=== PATIENT | female | born 1975 | race Caucasian/White ===

== ENCOUNTER 2017-10-22 14:46 | Emergency (ER) | payer OTHER ==
[~2017-10-22] VITALS: Ht 167.6 cm; Wt 95.2 kg
[~2017-10-22 14:46] MED LIST: ACYC400 PO; ALBU90OI6 INH; ALBU90OI61 INH; ARIP10 PO; BENZ100A PO; BUSP15 PO; Benadryl 50 mg50 MG PO; CALCAVITDA PO; CEPH500 PO; CLOM50A; CLON.5; CLON2 PO; CYCL10 PO; DOXY100T53 PO; ERGO400 PO; FAMO20 PO; FLUV50; HYDACE5 PO; HYDPAM25 PO; LAMO5; MEDR150I IM; NAPR500 PO; Prednisone20 MG PO; QUET200; QUET200 PO; QUET25; RXERYTOPTH OP; SERT100 PO; SULTRIDS PO; TRAM50 PO; TRIHYD5075 PO; Zofran Odt4 MG SL; Zofran4 MG PO; [UNRECOGNIZED DRUG - REMARK]
[2018-09-16] MEDS ORDERED: Abilify5 MG PO (12:11)
== END 2017-10-22 16:55 | disposition home or self-care (01) ==
LOC: ER 14:46
DX: J02.9 Acute pharyngitis, unspecified (principal); F32.9 Major depressive disorder, single episode, unspecified; J45.909 Unspecified asthma, uncomplicated; F41.9 Anxiety disorder, unspecified; F43.10 Post-traumatic stress disorder, unspecified; F17.200 Nicotine dependence, unspecified, uncomplicated; Z79.899 Other long term (current) drug therapy
CPT/HCPCS: 87081; 87430; 99283

== ENCOUNTER → 2017-11-12 | Outpatient (CLI) | payer OTHER ==
[~2017-11-12] MED LIST changes: +Abilify5 MG PO; +ONDA4ODT MM; +Sudogest60 MG PO; +Verotin-Gr Cap1 EACH PO; +Zovirax400 MG PO
[2017-11-13 14:26] LABS: BASOPHILS ABSOLUTE AUTO 0.06 K/mm3 (0.00-0.23); BASOPHILS PERCENT AUTO 1 % (0-2); EOSINOPHILS ABSOLUTE AUTO 0.17 K/mm3 (0.00-0.68); EOSINOPHILS PERCENT AUTO 1 % (0-6); Hematocrit 41.3 % (33.0-51.0); Hemoglobin 13.7 g/dL (11.5-16.0); IMMATURE GRAN ABSOLUTE AUTO 0.06 K/mm3 (0.00-0.10); IMMATURE GRAN PERCENT AUTO 1 % (0-1); LYMPHOCYTES ABSOLUTE AUTO 3.27 K/mm3 (0.84-5.20); LYMPHOCYTES PERCENT AUTO 27 % (21-46); MONOCYTES ABSOLUTE AUTO 0.79 K/mm3 (0.16-1.47); MONOCYTES PERCENT AUTO 7 % (4-13); Mean Corpuscular HGB 30.8 pg (26.0-34.0); Mean Corpuscular HGB Conc 33.2 g/dL (31.5-36.5); Mean Corpuscular Volume 93 fL (80-100); Mean Platelet Volume 11.3 fL (9.1-12.4); NEUTROPHILS ABSOLUTE AUTO 7.85 K/mm3 (1.96-9.15); NEUTROPHILS PERCENT AUTO 64 % (41-73); Platelet Count 334 K/mm3 (150-400); RDW Coefficient Variation 11.8 % (11.7-14.2); RDW Standard Deviation 40.5 fL (35.1-46.3); Red Blood Cell Count 4.45 M/mm3 (3.80-5.20)
[2017-11-13 14:46] LABS: Alanine Aminotransfer (ALT/SGP 24 U/L (12-78); Albumin, Blood 3.8 g/dL (3.4-5.0); Alk Phos 78 U/L (50-136); Anion Gap 8 mmol/L (6-16); Aspartate Aminotrans (AST/SGOT 16 U/L (12-37); Bilirubin, Total 0.3 mg/dL (0.1-1.0); Blood Urea Nitrogen 9 mg/dL (8-24); Bun/Creatinine Ratio 14.2 (12.0-20.0); CHOL/HDL RATIO 3.6; CO2, Blood 24 mmol/L (21-32); Calcium, Blood 8.9 mg/dL (8.5-10.1); Chloride, Blood 108 mmol/L (98-108); Cholesterol 190 mg/dL (50-200); Creatinine, Blood 0.63 mg/dL (0.40-1.00); Globulin, Blood 3.7 g/dL (2.2-4.0); Glomerular Filtration Rate >60 (60-); Glucose, Blood 85 mg/dL (70-99); HDL Cholesterol 53 mg/dL (>39); Low Density Lipoprotein Chol 106 mg/dL (0-110); Potassium, Blood 4.5 mmol/L (3.5-5.5); Sodium, Blood 140 mmol/L (136-145); Total Protein, Blood 7.5 g/dL (6.4-8.2); Triglycerides 156 mg/dL (30-160); Very Low Density Lipoprot Chol 31 mg/dL (6-32)
== END | disposition home or self-care (01) ==
LOC: LAB 16:50 → LAB SHORT 16:50
PROVIDERS: Nurse Practitioner Family
DX: E78.5 Hyperlipidemia, unspecified (principal); E55.9 Vitamin D deficiency, unspecified
CPT/HCPCS: 80053; 80061; 82306; 85025

== ENCOUNTER 2017-11-19 20:21 | Emergency (ER) | payer OTHER ==
[~2017-11-19] VITALS: Ht 170.2 cm; Wt 81.7 kg
[~2017-11-19 20:21] MED LIST changes: -Abilify5 MG PO; -ONDA4ODT MM; -Sudogest60 MG PO; -Verotin-Gr Cap1 EACH PO; -Zovirax400 MG PO
[2017-11-19 20:58] LABS: BASOPHILS ABSOLUTE AUTO 0.05 K/mm3 (0.00-0.23); BASOPHILS PERCENT AUTO 0 % (0-2); EOSINOPHILS ABSOLUTE AUTO 0.24 K/mm3 (0.00-0.68); EOSINOPHILS PERCENT AUTO 2 % (0-6); Hematocrit 39.7 % (33.0-51.0); Hemoglobin 13.5 g/dL (11.5-16.0); IMMATURE GRAN ABSOLUTE AUTO 0.02 K/mm3 (0.00-0.10); IMMATURE GRAN PERCENT AUTO 0 % (0-1); LYMPHOCYTES ABSOLUTE AUTO 3.65 K/mm3 (0.84-5.20); LYMPHOCYTES PERCENT AUTO 29 % (21-46); MONOCYTES ABSOLUTE AUTO 0.89 K/mm3 (0.16-1.47); MONOCYTES PERCENT AUTO 7 % (4-13); Mean Corpuscular HGB 31.5 pg (26.0-34.0); Mean Corpuscular Volume 93 fL (80-100); Mean Platelet Volume 10.5 fL (9.1-12.4); NEUTROPHILS ABSOLUTE AUTO 7.86 K/mm3 (1.96-9.15); NEUTROPHILS PERCENT AUTO 62 % (41-73); Platelet Count 285 K/mm3 (150-400); RDW Coefficient Variation 11.9 % (11.7-14.2); RDW Standard Deviation 40.9 fL (35.1-46.3); Red Blood Cell Count 4.28 M/mm3 (3.80-5.20); White Blood Cell Count 12.71 K/mm3 (4.00-11.30)
[2017-11-19 21:09] LABS: Alanine Aminotransfer (ALT/SGP 23 U/L (12-78); Albumin, Blood 3.4 g/dL (3.4-5.0); Albumin/Globulin Ratio 0.9 (0.8-1.8); Alk Phos 75 U/L (50-136); Anion Gap 9 mmol/L (6-16); Aspartate Aminotrans (AST/SGOT 24 U/L (12-37); Bilirubin, Total 0.2 mg/dL (0.1-1.0); Blood Urea Nitrogen 13 mg/dL (8-24); Bun/Creatinine Ratio 19.4 (12.0-20.0); CO2, Blood 23 mmol/L (21-32); Calcium, Blood 8.4 mg/dL (8.5-10.1); Chloride, Blood 107 mmol/L (98-108); Creatinine, Blood 0.67 mg/dL (0.40-1.00); Globulin, Blood 3.6 g/dL (2.2-4.0); Glomerular Filtration Rate >60 (60-); Glucose, Blood 94 mg/dL (70-99); Potassium, Blood 4.2 mmol/L (3.5-5.5); Sodium, Blood 139 mmol/L (136-145); Troponin I <0.015 ng/mL (0.000-0.040)
[2018-09-16] MEDS ORDERED: Abilify5 MG PO (12:11)
== END 2017-11-19 23:45 | disposition home or self-care (01) ==
LOC: ER 20:21
PROVIDERS: Emergency Medicine
DX: J45.901 Unspecified asthma with (acute) exacerbation (principal); F32.9 Major depressive disorder, single episode, unspecified; F41.9 Anxiety disorder, unspecified; F17.210 Nicotine dependence, cigarettes, uncomplicated; Z79.899 Other long term (current) drug therapy
CPT/HCPCS: 36415; 71046; 80053; 84484; 85025; 93005; 93010; 94640; 96361; 96374; 99283; J1885; J7030

== ENCOUNTER 2017-12-20 14:36 | Emergency (ER) | payer OTHER ==
[~2017-12-20] VITALS: Ht 167.6 cm; Wt 77.1 kg
[2017-12-20] MEDS ORDERED: SERT100 PO (14:57)
[2017-12-20] MEDS ORDERED: Zovirax400 MG PO (15:33)
[2018-09-16] MEDS ORDERED: Abilify5 MG PO (12:11)
== END 2017-12-20 15:37 | disposition home or self-care (01) ==
LOC: ER 14:36
DX: Z76.0 Encounter for issue of repeat prescription (principal); L60.0 Ingrowing nail; F32.9 Major depressive disorder, single episode, unspecified; F41.9 Anxiety disorder, unspecified; J45.909 Unspecified asthma, uncomplicated; F17.210 Nicotine dependence, cigarettes, uncomplicated; Z79.899 Other long term (current) drug therapy
CPT/HCPCS: 99282

== ENCOUNTER 2018-01-01 09:54 | Emergency (ER) | payer OTHER ==
[~2018-01-01] VITALS: Ht 167.6 cm; Wt 61.2 kg
[~2018-01-01 09:54] MED LIST changes: +Zovirax400 MG PO
[2018-01-01] MEDS ORDERED: Sudogest60 MG PO (11:37)
[2018-01-01] MEDS ORDERED: BENZ100A PO (11:37)
[2018-09-16] MEDS ORDERED: Abilify5 MG PO (12:11)
== END 2018-01-01 11:43 | disposition home or self-care (01) ==
LOC: ER 09:54
DX: R05 Cough (principal); Z79.899 Other long term (current) drug therapy; F32.9 Major depressive disorder, single episode, unspecified; J45.909 Unspecified asthma, uncomplicated; F41.9 Anxiety disorder, unspecified; F43.10 Post-traumatic stress disorder, unspecified; F17.210 Nicotine dependence, cigarettes, uncomplicated
CPT/HCPCS: 87081; 87430; 99283

== ENCOUNTER 2018-04-20 07:59 | Emergency (ER) | payer OTHER ==
[~2018-04-20] VITALS: Ht 167.6 cm; Wt 68.0 kg
[~2018-04-20 07:59] MED LIST changes: +Sudogest60 MG PO
== END 2018-04-20 08:55 | disposition home or self-care (01) ==
LOC: ER 07:59
DX: Z32.01 Encounter for pregnancy test, result positive (principal); O99.341 Other mental disorders complicating pregnancy, first trimester; F32.9 Major depressive disorder, single episode, unspecified; F41.9 Anxiety disorder, unspecified; F17.210 Nicotine dependence, cigarettes, uncomplicated; Z79.899 Other long term (current) drug therapy
CPT/HCPCS: 81000; 81025; 99281

== ENCOUNTER 2018-05-24 18:38 | Emergency (ER) | payer OTHER ==
[~2018-05-24] VITALS: Ht 167.6 cm; Wt 90.7 kg
[2018-05-24] MEDS ORDERED: CEPH500 PO (19:14)
== END 2018-05-24 19:40 | disposition home or self-care (01) ==
LOC: ER 18:38
DX: O91.211 Nonpurulent mastitis associated with pregnancy, first trimester (principal); O99.331 Smoking (tobacco) complicating pregnancy, first trimester; F17.210 Nicotine dependence, cigarettes, uncomplicated; O99.511 Diseases of the respiratory system complicating pregnancy, first trimester; J45.909 Unspecified asthma, uncomplicated; O99.341 Other mental disorders complicating pregnancy, first trimester; F32.9 Major depressive disorder, single episode, unspecified; F41.9 Anxiety disorder, unspecified; F43.10 Post-traumatic stress disorder, unspecified; Z3A.10 10 weeks gestation of pregnancy
CPT/HCPCS: 99282

== ENCOUNTER → 2018-06-03 | Outpatient (CLI) | payer OTHER ==
[2018-06-05 15:08] LABS: HPV 16 Negative (Negative); HPV 18 Negative (Negative); HPV OTHER HR TYPES Negative (Negative)
== END ==
LOC: LAB 17:11 → LAB SHORT 17:11
PROVIDERS: Registered Nurse Community Health
DX: O09.529 Supervision of elderly multigravida, unspecified trimester (principal); Z11.3 Encounter for screening for infections with a predominantly sexual mode of transmission; Z12.4 Encounter for screening for malignant neoplasm of cervix
CPT/HCPCS: 87529; 87624; G0123

== ENCOUNTER → 2018-07-03 | Outpatient (CLI) | payer OTHER ==
[2018-07-08 03:10] LABS: CHLAMYDIA TRACHOMATIS, NAA Negative (Negative); NEISSERIA GONORRHOEAE, NAA Negative (Negative)
== END ==
LOC: LAB UCHC 14:25 → LAB SHORT 14:25
PROVIDERS: Registered Nurse Community Health
DX: Z36.89 Encounter for other specified antenatal screening (principal); O09.529 Supervision of elderly multigravida, unspecified trimester
CPT/HCPCS: 87491; 87591

== ENCOUNTER 2018-08-15 23:17 | Emergency (ER) | payer OTHER ==
[~2018-08-15] VITALS: Ht 167.6 cm; Wt 77.1 kg
[2018-08-15 23:56] LABS: Source, Urine Clean Catch
[2018-08-16 00:04] LABS: Bilirubin, Urine Neg (Neg); Blood, Urine 1+ (Neg); Glucose Qualitative, Urine Neg (Neg); Ketones, Urine Neg (Neg); Leukocyte Esterase, Urine 1+ (Neg); Nitrite, Urine Neg (Neg); Protein, Urine Neg (Neg); Urobilinogen, Urine NORM (Normal); pH, Urine 6.5 (5.0-8.0)
[2018-08-16] MEDS ORDERED: SERT100 PO (00:04)
[2018-08-16] MEDS ORDERED: Verotin-Gr Cap1 EACH PO (00:04)
[2018-08-16] MEDS ORDERED: ONDA4ODT MM (00:04)
[2018-08-16 00:31] LABS: Appearance, Urine Clear (Clear); Color, Urine Yellow (P-Yellow)
[2018-08-16 00:33] LABS: Bacteria Few /hpf; Red Blood Cells, Urine 0-2 /hpf (0-2); Squamous Epithelial Cells Many /hpf (Few)
[2018-08-16 01:53] LABS: BASOPHILS ABSOLUTE AUTO 0.03 K/mm3 (0.00-0.23); BASOPHILS PERCENT AUTO 0 % (0-2); EOSINOPHILS ABSOLUTE AUTO 0.11 K/mm3 (0.00-0.68); EOSINOPHILS PERCENT AUTO 1 % (0-6); Hematocrit 38.4 % (33.0-51.0); Hemoglobin 13.2 g/dL (11.5-16.0); IMMATURE GRAN ABSOLUTE AUTO 0.02 K/mm3 (0.00-0.10); IMMATURE GRAN PERCENT AUTO 0 % (0-1); LYMPHOCYTES ABSOLUTE AUTO 2.55 K/mm3 (0.84-5.20); LYMPHOCYTES PERCENT AUTO 26 % (21-46); MONOCYTES ABSOLUTE AUTO 0.83 K/mm3 (0.16-1.47); MONOCYTES PERCENT AUTO 9 % (4-13); Mean Corpuscular HGB 31.5 pg (26.0-34.0); Mean Corpuscular HGB Conc 34.4 g/dL (31.5-36.5); Mean Corpuscular Volume 92 fL (80-100); Mean Platelet Volume 11.1 fL (9.1-12.4); NEUTROPHILS ABSOLUTE AUTO 6.14 K/mm3 (1.96-9.15); NEUTROPHILS PERCENT AUTO 64 % (41-73); Platelet Count 277 K/mm3 (150-400); RDW Coefficient Variation 11.5 % (11.7-14.2); RDW Standard Deviation 38.9 fL (35.1-46.3); Red Blood Cell Count 4.19 M/mm3 (3.80-5.20); White Blood Cell Count 9.68 K/mm3 (4.00-11.30)
== END 2018-08-16 05:12 | disposition left against medical advice (07) ==
LOC: ER 23:17
PROVIDERS: Emergency Medicine
DX: O21.9 Vomiting of pregnancy, unspecified (principal); O99.342 Other mental disorders complicating pregnancy, second trimester; F31.9 Bipolar disorder, unspecified; F41.9 Anxiety disorder, unspecified; Z79.899 Other long term (current) drug therapy; Z3A.21 21 weeks gestation of pregnancy
CPT/HCPCS: 36415; 76816; 81001; 81025; 85025; 96374; 99284-25; J2550; J7030

== ENCOUNTER 2018-08-19 11:30 | Emergency (ER) | payer OTHER ==
[~2018-08-19] VITALS: Ht 167.6 cm; Wt 77.1 kg
[~2018-08-19 11:30] MED LIST changes: +ONDA4ODT MM; +Verotin-Gr Cap1 EACH PO
== END 2018-08-19 13:27 | disposition left against medical advice (07) ==
LOC: ER 11:30
DX: Z53.21 Procedure and treatment not carried out due to patient leaving prior to being seen by health care provider (principal)

== ENCOUNTER 2018-11-16 02:50 | Observation (INO) | payer OTHER ==
[~2018-11-16 02:50] MED LIST changes: +Abilify5 MG PO
--- NOTE | 2018-11-16 09:05 | NUR ---
REPORT TAKEN, ASSUMED CARE
--- NOTE | 2018-11-16 09:09 | NUR ---
PT REFUSED TO HAVE RN ADJUST MONITORS
[2018-11-16 09:18] LABS: Source, Urine Clean Catch
--- NOTE | 2018-11-16 09:36 | NUR ---
MFTI - NOT APPLICABLE AT DISCHARGE
--- NOTE | 2018-11-16 09:41 | NUR ---
NST PER GE EMR
[2018-11-16 09:44] LABS: Appearance, Urine Clear (Clear); Bilirubin, Urine Neg (Neg); Blood, Urine 1+ (Neg); Color, Urine Yellow (P-Yellow); Glucose Qualitative, Urine Neg (Neg); Ketones, Urine Neg (Neg); Leukocyte Esterase, Urine 1+ (Neg); Nitrite, Urine Neg (Neg); Protein, Urine Neg (Neg); Specific Gravity, Urine 1.005 (1.003-1.022); Urobilinogen, Urine NORM (Normal)
[2018-11-16 10:10] LABS: Bacteria Few /hpf; Red Blood Cells, Urine 0-2 /hpf (0-2); Squamous Epithelial Cells Mod /hpf (Few); White Blood Cells, Urine 0-2 /hpf (0-5)
[2018-11-16] MEDS ORDERED: PREPLUS CA-FE1 EACH PO (15:41)
[2018-11-16] MEDS ORDERED: BUSP10 PO (15:42)
[2018-11-16] MEDS ORDERED: ACYC400 PO (15:45)
[2018-11-17 06:32] LABS: U Amphetamine Screen Not Detected; U Barbituate Screen Not Detected; U Benzodiazapine Screen Not Detected; U Buprenorphine Screen Not Detected; U Cannabinoids Screen Not Detected; U Cocaine Screen Not Detected; U Methadone Screen Not Detected; U Methamphetamine Screen Not Detected; U Opiates Screen Not Detected; U Oxycodone Screen Not Detected; U Phencyclidine Screen Not Detected; U Propoxyphene Screen Not Detected
[2018-11-17] MEDS ORDERED: SERT50 PO (13:14)
[2018-11-17] MEDS ORDERED: IBUP800 PO (13:14)
[2018-11-17] MEDS ORDERED: ARIP10 PO (13:18)
== END 2018-11-16 09:28 | disposition home or self-care (01) ==
LOC: OBS 02:50 → BC 02:50 → OBS 08:30 → BC 08:31
PROVIDERS: ADMIT Registered Nurse Community Health
DX: O60.03 Preterm labor without delivery, third trimester (principal); O09.523 Supervision of elderly multigravida, third trimester; O99.343 Other mental disorders complicating pregnancy, third trimester; F31.9 Bipolar disorder, unspecified; Z88.8 Allergy status to other drugs, medicaments and biological substances; Z79.899 Other long term (current) drug therapy; Z3A.35 35 weeks gestation of pregnancy
CPT/HCPCS: 36415; 59025; 81001; 87086; 96372; G0378; J0290; J3105; J7120

== ENCOUNTER 2018-11-16 13:50 | Inpatient (IN) | payer OTHER ==
[~2018-11-16] VITALS: Ht 165.1 cm; Wt 78.4 kg
[2018-11-16 14:51] LABS: BASOPHILS ABSOLUTE AUTO 0.04 K/mm3 (0.00-0.23); BASOPHILS PERCENT AUTO 0 % (0-2); EOSINOPHILS PERCENT AUTO 0 % (0-6); Hematocrit 39.7 % (33.0-51.0); Hemoglobin 13.8 g/dL (11.5-16.0); IMMATURE GRAN ABSOLUTE AUTO 0.14 K/mm3 (0.00-0.10); IMMATURE GRAN PERCENT AUTO 1 % (0-1); LYMPHOCYTES ABSOLUTE AUTO 1.58 K/mm3 (0.84-5.20); LYMPHOCYTES PERCENT AUTO 8 % (21-46); MONOCYTES ABSOLUTE AUTO 0.88 K/mm3 (0.16-1.47); MONOCYTES PERCENT AUTO 4 % (4-13); Mean Corpuscular HGB 31.3 pg (26.0-34.0); Mean Corpuscular HGB Conc 34.8 g/dL (31.5-36.5); Mean Corpuscular Volume 90 fL (80-100); Mean Platelet Volume 10.4 fL (9.1-12.4); NEUTROPHILS ABSOLUTE AUTO 17.62 K/mm3 (1.96-9.15); NEUTROPHILS PERCENT AUTO 87 % (41-73); Platelet Count 327 K/mm3 (150-400); RDW Coefficient Variation 12.6 % (11.7-14.2); RDW Standard Deviation 41.2 fL (35.1-46.3); Red Blood Cell Count 4.41 M/mm3 (3.80-5.20); White Blood Cell Count 20.26 K/mm3 (4.00-11.30)
[2018-11-16] MEDS ORDERED: PREPLUS CA-FE1 EACH PO (15:41)
[2018-11-16] MEDS ORDERED: BUSP10 PO (15:42)
[2018-11-16] MEDS ORDERED: ACYC400 PO (15:45)
--- NOTE | 2018-11-16 23:08 | NUR ---
RECEIEVED REPORT FROM RIVAS ARTEAGA. ASSUMED PATIENT CARE AT THIS TIME.
[2018-11-17 05:26] LABS: BASOPHILS ABSOLUTE AUTO 0.04 K/mm3 (0.00-0.23); BASOPHILS PERCENT AUTO 0 % (0-2); EOSINOPHILS ABSOLUTE AUTO 0.08 K/mm3 (0.00-0.68); EOSINOPHILS PERCENT AUTO 1 % (0-6); Hematocrit 37.1 % (33.0-51.0); Hemoglobin 12.5 g/dL (11.5-16.0); IMMATURE GRAN ABSOLUTE AUTO 0.09 K/mm3 (0.00-0.10); IMMATURE GRAN PERCENT AUTO 1 % (0-1); LYMPHOCYTES ABSOLUTE AUTO 3.56 K/mm3 (0.84-5.20); LYMPHOCYTES PERCENT AUTO 24 % (21-46); MONOCYTES ABSOLUTE AUTO 1.32 K/mm3 (0.16-1.47); MONOCYTES PERCENT AUTO 9 % (4-13); Mean Corpuscular HGB 31.3 pg (26.0-34.0); Mean Corpuscular HGB Conc 33.7 g/dL (31.5-36.5); NEUTROPHILS ABSOLUTE AUTO 9.61 K/mm3 (1.96-9.15); NEUTROPHILS PERCENT AUTO 65 % (41-73); Platelet Count 256 K/mm3 (150-400); RDW Coefficient Variation 12.7 % (11.7-14.2); RDW Standard Deviation 43.5 fL (35.1-46.3)
[2018-11-17 05:27] LABS: Mean Corpuscular Volume 93 fL (80-100)
[2018-11-17] MEDS ORDERED: IBUP800 PO (13:14)
[2018-11-17] MEDS ORDERED: SERT50 PO (13:14)
[2018-11-17] MEDS ORDERED: ARIP10 PO (13:18)
--- NOTE | 2018-11-17 13:55 | NUR ---
CPS AT BEDSIDE
--- NOTE | 2018-11-17 15:25 | NUR ---
CPS BERNIE MILLER, OUT OF PT ROOM. STATES THAT BABY AVERY HARTLEY WILL BE REMOVED FROM [facility]ART[facility] CUSTODY. ALYSE AND HER ARE AWARE AND REMAINED CALM IN ROOM.
--- NOTE | 2018-11-17 15:50 | NUR ---
PT HAD LEFT TO [place] TO GET FOOD AFTER CPS LEFT. PT BACK TO ROOM, GATHERING UP BELONGINGS. PT MEDICATIONS GIVEN BACK TO HER FROM PHARMACY. DISCUSSING PPFU APPOINTMENT, PT STATES SHE IS INTERESTED, THEN ALL OF A SUDDEN GOT AGITATED AND STARTED WALKING OUT THE DOOR. PT ASKED TO STAY TO HEAR ABOUT DISCHARGE INFORMATION AND PPFU. PT STATES "NOPE" AND LEAVES THE ROOM. PT UPSET ABOUT NOT BEING ABLE TO STAY WITH . RN UN ABLE TO BOOK PPFU, UNABLE TO REVIEW POST DISCHARGE INSTRUCTIONS. IBUPROFEN CALLED INTO [facility].
--- NOTE | 2018-11-17 15:51 | NUR ---
PT LEFT FBP UNIT
--- NOTE | 2018-11-17 16:22 | NUR ---
DENIA PARADA CALLED AND UPDATED ON PT LEAVING BEFORE DISCHARGE EDUCATION DISCUSSED, BEFORE FILLING OUT CERTIFICATE, AND HAS NO PPFU APPOINTMENT MADE. UPDATED ON CPS TAKING INFANT INTO CUSTODY.
== END 2018-11-17 15:55 | disposition home or self-care (01) | DRG 807 ==
LOC: OBS 13:50 → BC 13:57
PROVIDERS: ADMIT Registered Nurse Community Health
PROC: 10E0XZZ Delivery of Products of Conception, External Approach (ICD-10-PCS; principal; 2018-11-16)
PROC: 0HQ9XZZ Repair Perineum Skin, External Approach (ICD-10-PCS; 2018-11-16)
DX: O70.0 First degree perineal laceration during delivery (principal); Z37.0 Single live birth; Z3A.35 35 weeks gestation of pregnancy
CPT/HCPCS: 36415; 85025; J0290; J2590; J7120

== ENCOUNTER 2019-11-02 13:17 | Emergency (ER) | payer OTHER ==
[~2019-11-02] VITALS: Ht 167.6 cm; Wt 95.2 kg
[~2019-11-02 13:17] MED LIST changes: +BUSP10 PO; +IBUP800 PO; +PREPLUS CA-FE1 EACH PO; +SERT50 PO
[2019-11-02 13:52] LABS: Influenza A Negative (NEGATIVE); Influenza B Negative (NEGATIVE)
[2019-11-02] MEDS ORDERED: Chlor-Trimeton4 MG PO (14:11)
[2019-11-02] MEDS ORDERED: GUAIFENESIN-CODE5 ML PO (14:11)
== END 2019-11-02 14:29 | disposition home or self-care (01) ==
LOC: ER 13:17
PROVIDERS: Physician Assistant
DX: J06.9 Acute upper respiratory infection, unspecified (principal); Z88.8 Allergy status to other drugs, medicaments and biological substances; Z79.899 Other long term (current) drug therapy; J45.909 Unspecified asthma, uncomplicated; F31.9 Bipolar disorder, unspecified; F17.210 Nicotine dependence, cigarettes, uncomplicated
CPT/HCPCS: 87081; 87430; 87804; 99283

== ENCOUNTER → 2023-08-26 | Outpatient (CLI) | payer OTHER ==
[~2023-08-26] MED LIST changes: +Chlor-Trimeton4 MG PO; +GUAIFENESIN-CODE5 ML PO
== END ==
LOC: LAB SHORT 09:05 → LAB 09:05
DX: N91.2 Amenorrhea, unspecified (principal)
CPT/HCPCS: 84703

== ENCOUNTER → 2023-09-11 | Outpatient (CLI) | payer OTHER ==
[2023-09-20 12:02] LABS: HPV GENOTYPE 16 Not Detected; HPV GENOTYPE 18 Not Detected; HPV HIGH RISK Not Detected; HPV SOURCE Not Provided
== END | disposition home or self-care (01) ==
LOC: LAB SHORT 15:50 → LAB 15:50
PROVIDERS: Nurse Practitioner Family
DX: Z01.419 Encounter for gynecological examination (general) (routine) without abnormal findings (principal)
CPT/HCPCS: 87491; 87591

== ENCOUNTER 2023-12-07 22:45 | Emergency (ER) | payer OTHER ==
[~2023-12-07] VITALS: Ht 167.6 cm; Wt 101.2 kg
[2023-12-07] MEDS ORDERED: Ipratropium/Albuterol SulF 2.5-0.5MG/3 ML Amp INH PRN (23:00)
[2023-12-07 23:13] LABS: Hematocrit 41.7 % (33.0-51.0); Hemoglobin 13.8 g/dL (11.5-16.0); Mean Corpuscular HGB 30.1 pg (26.0-34.0); Mean Corpuscular HGB Conc 33.1 g/dL (31.5-36.5); Mean Corpuscular Volume 91 fL (80-100); Mean Platelet Volume 9.4 fL (9.1-12.4); Platelet Count 341 K/mm3 (150-400); RDW Coefficient Variation 13.2 % (11.7-14.2); RDW Standard Deviation 43.9 fL (35.1-46.3); Red Blood Cell Count 4.58 M/mm3 (3.80-5.20); White Blood Cell Count 12.96 K/mm3 (4.00-11.30)
[2023-12-07 23:33] LABS: Albumin, Blood 3.3 g/dL (3.4-5.0); Albumin/Globulin Ratio 1.1 (0.8-1.8); Bilirubin, Total 0.3 mg/dL (0.1-1.0); Bun/Creatinine Ratio 16.6 (12.0-20.0); Calcium, Blood 8.5 mg/dL (8.5-10.1); Creatinine, Blood 0.73 mg/dL (0.40-1.00); Globulin, Blood 3.1 g/dL (2.2-4.0); Potassium, Blood 3.3 mmol/L (3.5-5.5); Total Protein, Blood 6.4 g/dL (6.4-8.2)
[2023-12-07] MEDS ORDERED: Buspirone HCl15 MG PO (23:41)
[2023-12-07] MEDS ORDERED: ZOLOFT10013 PO (23:42)
[2023-12-07] MEDS ORDERED: ABILIFY PO (23:43)
[2023-12-07] MEDS ORDERED: BENZ100A PO (23:44)
[2023-12-07] MEDS ORDERED: LAMO100 PO (23:44)
[2023-12-07] MEDS ORDERED: ALBU90OI INH (23:45)
[2023-12-07 23:48] LABS: BASOPHILS PERCENT MAN 0 % (0-2); EOSINOPHILS ABSOLUTE MAN 0.12 K/mm3 (0.00-0.68); EOSINOPHILS PERCENT MAN 1 % (0-6); LYMPHOCYTES % ATYPICAL MANUAL 2 % (0-0); LYMPHOCYTES ABSOLUTE MAN 5.05 K/mm3 (0.84-5.20); LYMPHOCYTES PERCENT MAN 37 % (21-46); MONOCYTES ABSOLUTE MAN 0.38 K/mm3 (0.16-1.47); MONOCYTES PERCENT MAN 3 % (4-13); NEUTROPHILS ABSOLUTE MAN 7.25 K/mm3 (1.96-9.15); PLASMA CELL ABSOLUTE MAN 0.12 K/mm3 (0.00-0.00); PLASMA CELLS PERCENT MAN 1 % (0-0); SEG NEUTROPHILS PERCENT MAN 56 % (41-73); TOTAL CELLS COUNTED 100
[2023-12-08] MEDS ORDERED: Magnesium Sulf 2 GM/Water 50ML 50 ML IV ONE (00:25)
[2023-12-08] MEDS ORDERED: Ipratropium/Albuterol SulF 2.5-0.5MG/3 ML Amp INH ONE (00:25)
[2023-12-08 00:50] LABS: Influenza A, PCR NEGATIVE (NEGATIVE); Influenza B, PCR NEGATIVE (NEGATIVE); Resp Syncytial Virus, PCR NEGATIVE (NEGATIVE); SARS-Cov-2 (COVID-19) PCR, MMC NEGATIVE (NEGATIVE)
[2023-12-08 01:35] LABS: Bicarbonate Venous 25.1 mmol/L (24.0-30.0); PCO2 Venous 41.2 mmHg (38-42)
[2023-12-08 03:00] VITALS: BP 154/67
[2023-12-08] MEDS ORDERED: PRED20 PO (03:01)
[2023-12-08] MEDS ORDERED: AZIT250 PO (03:06)
== END 2023-12-08 03:10 | disposition home or self-care (01) ==
LOC: ER 22:45
PROVIDERS: Emergency Medicine; Student in an Organized Health Care Education/Training Program
DX: J45.909 Unspecified asthma, uncomplicated (principal); Z88.8 Allergy status to other drugs, medicaments and biological substances; Z79.899 Other long term (current) drug therapy; F43.10 Post-traumatic stress disorder, unspecified; F17.210 Nicotine dependence, cigarettes, uncomplicated
CPT/HCPCS: 0241U; 71046; 80053; 82803; 84484; 85025; 93005; 93010; 94640; 94664; 96365; 99285-25; J3475

== ENCOUNTER → 2025-02-16 | Outpatient (CLI) | payer OTHER ==
[~2025-02-16] MED LIST changes: +ABILIFY PO; +ALBU90OI INH; +AZIT250 PO; +Buspirone HCl15 MG PO; +LAMO100 PO; +PRED20 PO; +ZOLOFT10013 PO
== END | disposition home or self-care (01) ==
LOC: LAB 17:48 → LAB SHORT 17:48
DX: R30.0 Dysuria (principal)
CPT/HCPCS: 87077; 87086; 87186

== ENCOUNTER 2025-05-14 21:55 | Inpatient (IN) | payer OTHER ==
[~2025-05-14] VITALS: Ht 167.6 cm; Wt 98.0 kg
[2025-05-14 22:40] LABS: BASOPHILS ABSOLUTE AUTO 0.05 K/mm3 (0.00-0.23); BASOPHILS PERCENT AUTO 1 % (0-2); EOSINOPHILS ABSOLUTE AUTO 0.16 K/mm3 (0.00-0.68); EOSINOPHILS PERCENT AUTO 2 % (0-6); Hematocrit 40.0 % (33.0-51.0); Hemoglobin 13.5 g/dL (11.5-16.0); IMMATURE GRAN ABSOLUTE AUTO 0.02 K/mm3 (0.00-0.10); IMMATURE GRAN PERCENT AUTO 0 % (0-1); LYMPHOCYTES ABSOLUTE AUTO 3.72 K/mm3 (0.84-5.20); LYMPHOCYTES PERCENT AUTO 35 % (21-46); MONOCYTES ABSOLUTE AUTO 0.76 K/mm3 (0.16-1.47); MONOCYTES PERCENT AUTO 7 % (4-13); Mean Corpuscular HGB Conc 33.8 g/dL (31.5-36.5); Mean Corpuscular Volume 91 fL (80-100); NEUTROPHILS ABSOLUTE AUTO 6.03 K/mm3 (1.96-9.15); NEUTROPHILS PERCENT AUTO 56 % (41-73); NRBC ABSOLUTE 0.00 K/mm3 (0.00-0.02); NRBC Auto 0.0 /100 WBC (0.0-0.2); Platelet Count 337 K/mm3 (150-400); RDW Coefficient Variation 12.5 % (11.7-14.2); RDW Standard Deviation 41.5 fL (35.1-46.3)
[2025-05-14 22:54] LABS: Alanine Aminotransfer (ALT/SGP 28.0 U/L (12-78); Albumin, Blood 3.2 g/dL (3.4-5.0); Albumin/Globulin Ratio 0.8 (0.8-1.8); Anion Gap 7.0 mmol/L (3-11); Aspartate Aminotrans (AST/SGOT 21.0 U/L (12-37); Bilirubin, Total 0.2 mg/dL (0.1-1.0); Blood Urea Nitrogen 11.0 mg/dL (8-24); CO2, Blood 28.0 mmol/L (21-32); Calcium, Blood 8.6 mg/dL (8.5-10.1); Chloride, Blood 108.0 mmol/L (98-108); Creatinine, Blood 0.76 mg/dL (0.40-1.00); Globulin, Blood 3.9 g/dL (2.2-4.0); Glucose, Blood 103.0 mg/dL (70-99); Potassium, Blood 3.7 mmol/L (3.5-5.5); Sodium, Blood 139.0 mmol/L (136-145); Total Protein, Blood 7.1 g/dL (6.4-8.2)
[2025-05-14] MEDS ORDERED: Nitroglycerin Patch 0.4 MG / HR TOP ONE (23:45)
[2025-05-15] VITALS (7 sets, daily range): BP systolic 101–141; BP diastolic 59–73
[2025-05-15] MEDS ORDERED: Ipratropium/Albuterol SulF 2.5-0.5MG/3 ML Amp INH PRN (00:05)
[2025-05-15] MEDS ORDERED: Ondansetron HCl 2 MG / ML 2ML Vial IV PRN (00:10)
[2025-05-15 01:04] LABS: Anti-Xa UFH, PHA Monitoring <0.10 IU/mL; D-Dimer, Quantitative 0.27 mg/L FEU (0.00-0.52); Prothrombin Time Results 10.5 Sec (9.7-11.5)
[2025-05-15] MEDS ORDERED: Heparin Sodium 5000 Units/ML 1ML MDV IV ONE (01:55)
[2025-05-15] MEDS ORDERED: Heparin Sodium,Porcine/0.5 NS 500 ML IV SCH (01:55)
[2025-05-15 05:14] LABS: Hematocrit 38.3 % (33.0-51.0); Hemoglobin 12.9 g/dL (11.5-16.0); Mean Corpuscular HGB Conc 33.7 g/dL (31.5-36.5); Mean Corpuscular Volume 92 fL (80-100); NRBC ABSOLUTE 0.00 K/mm3 (0.00-0.02); NRBC Auto 0.0 /100 WBC (0.0-0.2); Platelet Count 317 K/mm3 (150-400); RDW Coefficient Variation 12.6 % (11.7-14.2); RDW Standard Deviation 42.4 fL (35.1-46.3)
[2025-05-15 05:39] LABS: Alanine Aminotransfer (ALT/SGP 24.0 U/L (12-78); Albumin, Blood 3.0 g/dL (3.4-5.0); Albumin/Globulin Ratio 0.9 (0.8-1.8); Anion Gap 7.0 mmol/L (3-11); Aspartate Aminotrans (AST/SGOT 14.0 U/L (12-37); Bilirubin, Total 0.2 mg/dL (0.1-1.0); Blood Urea Nitrogen 12.0 mg/dL (8-24); CO2, Blood 26.0 mmol/L (21-32); Calcium, Blood 8.6 mg/dL (8.5-10.1); Chloride, Blood 109.0 mmol/L (98-108); Creatinine, Blood 0.75 mg/dL (0.40-1.00); Globulin, Blood 3.5 g/dL (2.2-4.0); Glucose, Blood 109.0 mg/dL (70-99); Potassium, Blood 3.9 mmol/L (3.5-5.5); Sodium, Blood 138.0 mmol/L (136-145); Total Protein, Blood 6.5 g/dL (6.4-8.2)
[2025-05-15 06:06] LABS: BAND PERCENT MAN 1 % (0-8); BASOPHILS ABSOLUTE MAN 0.00 K/mm3 (0.00-0.23); BASOPHILS PERCENT MAN 0 % (0-2); EOSINOPHILS ABSOLUTE MAN 0.11 K/mm3 (0.00-0.68); EOSINOPHILS PERCENT MAN 1 % (0-6); LYMPHOCYTES ABSOLUTE MAN 3.94 K/mm3 (0.84-5.20); LYMPHOCYTES PERCENT MAN 35 % (21-46); MONOCYTES ABSOLUTE MAN 0.67 K/mm3 (0.16-1.47); MONOCYTES PERCENT MAN 6 % (4-13); NEUTROPHILS ABSOLUTE MAN 6.42 K/mm3 (1.96-9.15); PLASMA CELL ABSOLUTE MAN 0.11 K/mm3 (0.00-0.00); PLASMA CELLS PERCENT MAN 1 % (0-0); SEG NEUTROPHILS PERCENT MAN 56 % (41-73)
[2025-05-15 06:12] LABS: CHOL/HDL RATIO 3.4; Cholesterol 165 mg/dL (50-200); HDL Cholesterol 48 mg/dL (>39); LDL/HDL RATIO 2.2; Low Density Lipoprotein Chol 105 mg/dL (0-110); Triglycerides 59 mg/dL (30-160); Very Low Density Lipoprot Chol 11 mg/dL (6-32)
[2025-05-15] MEDS ORDERED: Prozac40 MG PO (10:11)
[2025-05-15] MEDS ORDERED: ATOM60 PO (10:12)
[2025-05-15] MEDS ORDERED: GUANFACINE HCL2 M1 PO (10:13)
[2025-05-15] MEDS ORDERED: Mometasone Furoate Inhaler 220 mcg 14 ACT INH SCH (10:40)
[2025-05-15] MEDS ORDERED: Atomoxetine HCL 40 MG Cap PO SCH (10:52)
[2025-05-15] MEDS ORDERED: MEDROXYPRO150 MG/29 INJ (10:59)
[2025-05-16 02:33] LABS: BASOPHILS ABSOLUTE AUTO 0.05 K/mm3 (0.00-0.23); BASOPHILS PERCENT AUTO 1 % (0-2); EOSINOPHILS ABSOLUTE AUTO 0.13 K/mm3 (0.00-0.68); EOSINOPHILS PERCENT AUTO 1 % (0-6); Hematocrit 39.2 % (33.0-51.0); Hemoglobin 13.4 g/dL (11.5-16.0); IMMATURE GRAN ABSOLUTE AUTO 0.04 K/mm3 (0.00-0.10); IMMATURE GRAN PERCENT AUTO 0 % (0-1); LYMPHOCYTES ABSOLUTE AUTO 3.07 K/mm3 (0.84-5.20); LYMPHOCYTES PERCENT AUTO 30 % (21-46); MONOCYTES ABSOLUTE AUTO 0.62 K/mm3 (0.16-1.47); MONOCYTES PERCENT AUTO 6 % (4-13); Mean Corpuscular HGB Conc 34.2 g/dL (31.5-36.5); Mean Corpuscular Volume 90 fL (80-100); NEUTROPHILS ABSOLUTE AUTO 6.33 K/mm3 (1.96-9.15); NEUTROPHILS PERCENT AUTO 62 % (41-73); NRBC ABSOLUTE 0.00 K/mm3 (0.00-0.02); NRBC Auto 0.0 /100 WBC (0.0-0.2); Platelet Count 280 K/mm3 (150-400); RDW Coefficient Variation 12.2 % (11.7-14.2); RDW Standard Deviation 40.3 fL (35.1-46.3)
[2025-05-16 02:51] LABS: Anion Gap 8.0 mmol/L (3-11); Blood Urea Nitrogen 9.0 mg/dL (8-24); CO2, Blood 27.0 mmol/L (21-32); Calcium, Blood 8.4 mg/dL (8.5-10.1); Chloride, Blood 107.0 mmol/L (98-108); Creatinine, Blood 0.77 mg/dL (0.40-1.00); Glucose, Blood 98.0 mg/dL (70-99); Potassium, Blood 4.2 mmol/L (3.5-5.5); Sodium, Blood 138.0 mmol/L (136-145)
[2025-05-16 03:52] VITALS: BP 96/65
[2025-05-16 07:28] VITALS: BP 110/51
[2025-05-16] MEDS ORDERED: Aminophylline 250MG / 10ML 10 ML Vial ONE (08:10)
[2025-05-16 11:12] VITALS: BP 114/79
[2025-05-16] MEDS ORDERED: MOME220I INH (12:38)
[2025-05-16] MEDS ORDERED: GUANFACINE HCL E2 MG PO (12:40)
== END 2025-05-16 13:25 | disposition home or self-care (01) | DRG 202 ==
LOC: ER 21:55 → PCU 05-15 00:01
PROVIDERS: Internal Medicine; Student in an Organized Health Care Education/Training Program; ADMIT Student in an Organized Health Care Education/Training Program
DX: J45.901 Unspecified asthma with (acute) exacerbation (principal); I21.A1 Myocardial infarction type 2; F42.9 Obsessive-compulsive disorder, unspecified; F41.9 Anxiety disorder, unspecified; F43.10 Post-traumatic stress disorder, unspecified; F31.9 Bipolar disorder, unspecified; F17.210 Nicotine dependence, cigarettes, uncomplicated; G47.33 Obstructive sleep apnea (adult) (pediatric); Z79.899 Other long term (current) drug therapy; Z79.51 Long term (current) use of inhaled steroids; Z88.8 Allergy status to other drugs, medicaments and biological substances
CPT/HCPCS: 36415; 71046; 78452; 80048; 80053; 80061; 82947; 83036; 83690; 83735; 84443; 84484; 85025; 85379; 85520; 85610; 93005; 93010; 93017; 93306; 94640; 94664; 94762; 99285-25; A9270; A9500; J0280; J1644; J2785; J7120